=== PATIENT | male | born 1995 | race Caucasian/White ===

== ENCOUNTER 2025-01-15 21:44 | Emergency (ER) | payer OTHER ==
[~2025-01-15] VITALS: Ht 185.4 cm; Wt 90.7 kg
[~2025-01-15 21:44] MED LIST: ACET325 PO; Bactrim Ds Tab1 EACH PO; HYDACE5 PO; Hydrocodone-Ap1 EA23 PO; IBUP800 PO; LEVFLO500 PO; NAPR220 PO; RIFA300 PO
[2025-01-15] MEDS ORDERED: Trimethoprim/Sulfamethoxazole DS Tab PO ONE (22:20)
[2025-01-15] MEDS ORDERED: Ketorolac Tromethamine 30mg Vial IV ONE (22:20)
[2025-01-15 22:47] LABS: BASOPHILS ABSOLUTE AUTO 0.07 K/mm3 (0.00-0.23); BASOPHILS PERCENT AUTO 1 % (0-2); EOSINOPHILS ABSOLUTE AUTO 0.11 K/mm3 (0.00-0.68); EOSINOPHILS PERCENT AUTO 1 % (0-6); Hematocrit 47.1 % (37.0-53.0); Hemoglobin 16.2 g/dL (13.5-17.5); IMMATURE GRAN ABSOLUTE AUTO 0.03 K/mm3 (0.00-0.10); IMMATURE GRAN PERCENT AUTO 0 % (0-1); LYMPHOCYTES ABSOLUTE AUTO 1.94 K/mm3 (0.84-5.20); LYMPHOCYTES PERCENT AUTO 22 % (21-46); MONOCYTES ABSOLUTE AUTO 0.67 K/mm3 (0.16-1.47); MONOCYTES PERCENT AUTO 8 % (4-13); Mean Corpuscular HGB Conc 34.4 g/dL (31.5-36.5); Mean Corpuscular Volume 89 fL (80-100); NEUTROPHILS ABSOLUTE AUTO 5.93 K/mm3 (1.96-9.15); NEUTROPHILS PERCENT AUTO 68 % (41-73); NRBC ABSOLUTE 0.00 K/mm3 (0.00-0.02); NRBC Auto 0.0 /100 WBC (0.0-0.2); RDW Coefficient Variation 12.5 % (11.7-14.2); RDW Standard Deviation 40.8 fL (35.1-46.3)
[2025-01-15 22:59] LABS: Alanine Aminotransfer (ALT/SGP 32.0 U/L (12-78); Albumin, Blood 4.2 g/dL (3.4-5.0); Albumin/Globulin Ratio 1.3 (0.8-1.8); Anion Gap 9.0 mmol/L (3-11); Aspartate Aminotrans (AST/SGOT 22.0 U/L (12-37); Bilirubin, Total 0.3 mg/dL (0.1-1.0); Blood Urea Nitrogen 14.0 mg/dL (8-24); CO2, Blood 25.0 mmol/L (21-32); Calcium, Blood 8.7 mg/dL (8.5-10.1); Chloride, Blood 110.0 mmol/L (98-108); Creatinine, Blood 0.94 mg/dL (0.60-1.20); Globulin, Blood 3.2 g/dL (2.2-4.0); Glucose, Blood 163.0 mg/dL (70-99); Potassium, Blood 4.1 mmol/L (3.5-5.5); Sodium, Blood 140.0 mmol/L (136-145); Total Protein, Blood 7.4 g/dL (6.4-8.2)
[2025-01-15 23:22] LABS: Platelet Count 219 K/mm3 (150-400)
[2025-01-16] MEDS ORDERED: SULTRIDS PO (00:55)
[2025-01-16 01:00] VITALS: BP 142/90
[2025-01-16] MEDS ORDERED: Trimethoprim/Sulfamethoxazole DS Tab PO ONE (01:05)
== END 2025-01-16 01:16 | disposition home or self-care (01) ==
LOC: ER 21:44
PROVIDERS: Student in an Organized Health Care Education/Training Program
DX: S02.2XXA Fracture of nasal bones, initial encounter for closed fracture (principal); S01.21XA Laceration without foreign body of nose, initial encounter; W01.0XXA Fall on same level from slipping, tripping and stumbling without subsequent striking against object, initial encounter; Z79.899 Other long term (current) drug therapy
CPT/HCPCS: 12011; 70450; 70486; 72125; 80053; 85025; 90471; 90715; 99284-25; A9270